=== PATIENT | female | born 1945 | race Caucasian/White ===

== ENCOUNTER 2021-08-02 09:43 | Outpatient (CLI) | payer MEDICARE, SELFPAY ==
--- NOTE | 2021-08-02 09:57 | EST_ITS ---
Patient Info Name: Michelle Santana Age: 76 years : 1945 Gender: Female Ht: 61 in Wt: 160 lbs BSA: 1.79 m2 HR: 57 bpm BP: 143 / 86 mmHg Heart Rhythm: Sinus Rhythm Exam Date: 08/02/2021 10:10 AM Exam Location: [facility] Stress Patient Status: Outpatient Admit Date: 08/02/2021 Staff Ordering Physician: Arleen Peraza NP Attending Provider: Arleen Peraza NP Exercise Technologist: Heide Donald CT Exercise Physician: True Mireles DO Exam Type: CA stress test treadmill Study Info Indications I49.9 - IRREGULAR HEART BEAT Z72.3 - EXERCISE INTOLERANCE A regadenoson stress test was performed. Summary 1. 1. Negative Yash exercise stress test for ischemic ST changes by ECG criteria. 2. 2. Reduced functional capacity, achieving 6 METs of workload. 3. 3. Baseline hypertension. 4. 4. Appropriate HR response to exercise. 5. 5. Appropriate HR recovery at 1 minute post exercise. 6. 6. No imaging with stress testing. 7. 7. Patient informed of the above results. Protocol: Yash Stress ECG Details Stage: REST Duration (min): 0 min : 59 sec Speed (mph): 0.0 Grade (%): 0 HR (bpm): 58 SBP (mmHg): 143 DBP (mmHg): 86 METS: --- Stage: REST Duration (min): 5 min : 10 sec Speed (mph): 0.0 Grade (%): 0 HR (bpm): 59 SBP (mmHg): 143 DBP (mmHg): 86 METS: --- Stage: STAGE 1 Duration (min): 1 min : 0 sec Speed (mph): 1.7 Grade (%): 10 HR (bpm): 89 SBP (mmHg): 143 DBP (mmHg): 86 METS: --- Stage: STAGE 1 Duration (min): 2 min : 0 sec Speed (mph): 1.7 Grade (%): 10 HR (bpm): 102 SBP (mmHg): 143 DBP (mmHg): 86 METS: --- Stage: STAGE 1 Duration (min): 3 min : 0 sec Speed (mph): 1.7 Grade (%): 10 HR (bpm): 118 SBP (mmHg): 209 DBP (mmHg): 79 METS: --- Stage: STAGE 2 Duration (min): 0 min : 54 sec Speed (mph): 2.5 Grade (%): 12 HR (bpm): 131 SBP (mmHg): 209 DBP (mmHg): 79 METS: --- Stage: RECOVERY Duration (min): 0 min : 5 sec Speed (mph): 1.5 Grade (%): 0 HR (bpm): 132 SBP (mmHg): 209 DBP (mmHg): 79 METS: --- Stage: RECOVERY Duration (min): 1 min : 5 sec Speed (mph): 0.0 Grade (%): 0 HR (bpm): 102 SBP (mmHg): 209 DBP (mmHg): 79 METS: --- Stage: RECOVERY Duration (min): 2 min : 5 sec Speed (mph): 0.0 Grade (%): 0 HR (bpm): 83 SBP (mmHg): 209 DBP (mmHg): 79 METS: --- Stage: RECOVERY Duration (min): 2 min : 59 sec Speed (mph): 0.0 Grade (%): 0 HR (bpm): 80 SBP (mmHg): 198 DBP (mmHg): 70 METS: --- Rest HR: 59 bpm Peak HR: 132 bpm Rest Sys BP: 143 mmHg Peak Sys BP: 209 mmHg Max Pred HR: 145 bpm % Max Pred HR: 91 % Target HR: 123 bpm Max RPP: 27,588 bpm*mmHg Lopez Score: -5 Termination Reason: Reached target heart rate or workload Cardiac Symptoms: Shortness of breath Max ST Seg Deviation: 1.70 mm Total Time: 3 min : 54 sec
== END 2021-08-02 09:44 | disposition home or self-care (01) ==
PROVIDERS: PCP Nurse Practitioner Family; Visit Provider Nurse Practitioner Family
DX: R68.89 Other general symptoms and signs (principal)
CPT/HCPCS: 93017

== ENCOUNTER 2021-10-17 08:00 | Outpatient (NON) | payer MEDICARE, SELFPAY | END 2021-10-17 08:01 | disposition home or self-care (01) | LOC: ANHLAB 10-18 07:26 | PROVIDERS: PCP Family Medicine; Visit Provider Internal Medicine Gastroenterology | DX: R13.10 Dysphagia, unspecified (principal); K20.90 Esophagitis, unspecified without bleeding | CPT/HCPCS: 88305 ==

== ENCOUNTER 2021-10-17 11:00 | Day surgery (SDC) | payer MEDICARE, SELFPAY ==
[2021-08-16 14:14] VITALS: BMI 29.5
[2021-10-01 14:11] VITALS: BMI 29.5
--- NOTE | 2021-10-16 14:05 | WPDANESEPPF ---
Anes - Initial Pre Proc Eval Procedure: Operation Date: 10/17/21 12:30 Proposed Procedures p Esophagogastroduodenoscopy - Jermaine Bryant MD Date/Time: 10/16/21 14:05 Surgeon: Jermaine Bryant MD Pre Op Diagnosis: Dysphagia Patient Data Age: 76 Gender: F Height: 1.55 m Weight: 71 kg Allergies Allergy/AdvReac Type Severity Reaction Status Date / Time No Known Allergies Allergy Verified 10/01/21 14:23 Home Medications Medication Instructions Recorded Confirmed Type garlic extract 2,000 mg PO DAILY 11/30/20 10/17/21 History mecobalamin (vitamin B12) 1 cap PO DAILY 11/30/20 10/17/21 History zinc gluconate-vitamin C [zinc] 1 cap PO DAILY 11/30/20 10/17/21 History krill oil 1,000 mg-om3 130 mg-dha 1 cap PO DAILY 10/01/21 10/17/21 History 40 mg-epa 80 cm-kl8-xhr-astax cap (Krill Oil ([place] 3 and 6)) Patient hx anesthesia problems: none Family hx anesthesia problems: none Results Review: All pre-operative results and documents have been reviewed as part of the pre-operative evaluation. [facility] Past Medical History Medical History (Updated 08/14/21 @ 11:44 by Arleen Peraza NP) Anemia BMI 29.0-29.9,adult BMI 30.0-30.9,adult Decreased exercise tolerance Drusen of optic disc, right eye Dysphagia Encounter to establish care Epigastric pain Fatigue Heartburn History of anemia Hyperlipidemia LUQ pain Puckering of macula, right eye Screening for breast cancer Vitamin D deficiency Wellness examination Surgical History Surgical History History of appendectomy History of hysterectomy History of tubal ligation Hx of cholecystectomy Family History Family History Father Diabetes mellitus Hypertension Heart disease Mother Cerebrovascular accident Social History Social History Smoking status: Former smoker Alcohol intake: former Substance use: never Substance use type: does not use Living arrangements: with family Spiritual care concerns: No Anes - Eval Final PreProcedure Day of Procedure 10/16/21 14:05 Patient weight: overweight Heart: regular rate and rhythm Lungs: clear to auscultation Airway: Mallampati scale class II Neurological: alert and oriented Last oral intake: >/= 8 hours ASA classification: II Emergent: no Anesthetic plan: proceed Anesthesia type and monitoring: general GIVS and standard monitoring Results Review: All pre-operative results and documents have been reviewed as part of the pre-operative evaluation. Informed Consent: The patient's anesthetic plan and its attendant risks and benefits were discussed with the patient/family/POA. Questions were solicited and answers provided to the satisfaction of the patient/family/POA.
--- NOTE | 2021-10-16 16:08 | P.HP_ITS ---
History of Present Illness History of Present Illness Consent: Risks, benefits, and alternatives have been discussed and questions answered. Patient agrees to proceed with procedure. Chief complaint: Dysphagia Narrative: Michelle Santana is a 76 year old female. She reports painful swallowing and? burning in her chest and feels like food and liquids have a hard time going down her esophagus.? She she reports this has been ongoing the last several months and does not happen all the time just intermittently.? It can be worse of sparkling water, wine, beer, at times water.? She also reports a globus sensation near her thyroid.? She has been using aloe vera juice and states it helps.? She denies any nausea, vomiting, abdominal pain, unintentional weight loss, appetite loss, or typical reflux symptoms.? She does have a lot of gas and bloating but takes papaya enzymes for this.?She frequently has a globus sensation, has had this for years. Review of Systems Review of Systems: All systems reviewed & are unremarkable except as noted in HPI and below PMFSH Past Medical History Medical History Anemia BMI 29.0-29.9,adult BMI 30.0-30.9,adult Decreased exercise tolerance Drusen of optic disc, right eye Dysphagia Encounter to establish care Epigastric pain Fatigue Heartburn History of anemia Hyperlipidemia LUQ pain Puckering of macula, right eye Screening for breast cancer Vitamin D deficiency Wellness examination Surgical History Surgical History History of appendectomy History of hysterectomy History of tubal ligation Hx of cholecystectomy Family History Family History Father Diabetes mellitus Hypertension Heart disease Mother Cerebrovascular accident Social History Social History Smoking status: Former smoker Alcohol intake: former Substance use: never Substance use type: does not use Living arrangements: with family Spiritual care concerns: No Meds Home Medications and Allergies Home Medications Medication Instructions Recorded Confirmed Type garlic extract 2,000 mg PO DAILY 11/30/20 10/17/21 History mecobalamin (vitamin B12) 1 cap PO DAILY 10/07/21 08/24/22 History zinc gluconate-vitamin C [zinc] 1 cap PO DAILY 11/30/20 10/17/21 History krill oil 1,000 mg-om3 130 mg-dha 1 cap PO DAILY 10/01/21 10/17/21 History 40 mg-epa 80 kg-az0-wqa-astax cap (Krill Oil ([place] 3 and 6)) Allergies Allergy/AdvReac Type Severity Reaction Status Date / Time No Known Allergies Allergy Verified 10/01/21 14:23 Exam Const: General: alert Orientation/consciousness: patient oriented x3 Resp: Auscultation: clear to auscultation bilaterally Cardio: Rhythm: regular rhythm GI: GI Palp: Yes Soft to palpation and No Tenderness to palpation present (GI) Neuro: General: patient oriented x3 Assessment and Plan Assessment and plan (1) Dysphagia: Code(s): R13.10 - Dysphagia, unspecified Status: Acute Assessment and Plan: EGD with possible biopsy or dilatation or cautery.
[2021-10-17 11:30] VITALS: BMI 29.9
[2021-10-17 11:31] VITALS: BP 159/84; PULSE 63; RESP 16; TEMP 36.4; O2SAT 100
[2021-10-17] MEDS: LACTATED RINGERS 1,000 ML 150 ML IV CONT (11:36)
[2021-10-17 12:38] VITALS: BP 148/76; PULSE 64; RESP 14; O2SAT 100
[2021-10-17 12:58] VITALS: BP 144/87; PULSE 63; RESP 13; O2SAT 99
--- NOTE | 2021-10-17 13:00 | WPDANESPN ---
Anes - Prog Note Post-Op Date/Time: 10/17/21 13:00 Cardiovascular status: normal Respiratory status: normal Airway patency: baseline Mental status: baseline Post-Op hydration status: normal Vital Signs: Last Vital Signs Temp 36.4 C L 10/17/21 11:31 Pulse 64 10/17/21 12:38 Resp 14 10/17/21 12:38 BP 148/76 H 10/17/21 12:38 Pulse Ox 100 10/17/21 12:38 O2 Del Method Room Air 10/17/21 12:38 Pain Score (VAS): 0 I/O: Intake & Output 10/16/21 10/17/21 10/17/21 23:59 07:59 15:59 Intake Total 200 Balance 200 Post-procedural complaints: none Patient Feedback: Patient satisfied with anesthetic care. Other Findings: Patient vital signs back to baseline. Patient denies nausea and vomiting. Patient's pain under control. Patient OK for discharge.
== END 2021-10-17 13:16 | disposition home or self-care (01) ==
PROVIDERS: PCP Family Medicine; Visit Provider Internal Medicine Gastroenterology
PROC: 0DJ08ZZ Inspection of Upper Intestinal Tract, Via Natural or Artificial Opening Endoscopic (ICD-10-PCS; CPT 43235; principal; 2021-10-17 12:30)
DX: K21.00 Gastro-esophageal reflux disease with esophagitis, without bleeding (principal)
CPT/HCPCS: 43239

== ENCOUNTER → 2024-09-15 10:05 | Outpatient (CLI) | payer MEDICARE, SELFPAY ==
--- NOTE | ~2024-09-15 | XR_ITS ---
XR lumbar spine min 4V 09/15/2024 10:38 Indication: Low back pain Procedure: 5 views lumbar spine Comparison: No prior studies for comparison. Findings: There is disc narrowing at all lumbar levels. There is multilevel facet hypertrophy. There is grade 1 degenerative spondylolisthesis at L4-5 and L5-S1. There is mild curvature of the lumbar sp ine. Sacral foramen are symmetric. No acute fracture. There is atherosclerosis. Impression: 1: Moderate-severe lumbar spondylosis with grade 1 degenerative spondylolisthesis at L4-5 and L5-S1. Reviewed, dictated and finalized at location A. Impression: 1: Moderate-severe lumbar spondylosis with grade 1 degenerative spondylolisthes is at L4-5 and L5-S1.
--- NOTE | ~2024-09-15 | XR_ITS ---
XR hip RT 2V w AP pelvis 09/15/2024 10:38 Indication: Right lower quadrant pain Procedure: 3 views right hip including AP pelvis Comparison: No prior studies for comparison. Findings: There is moderate bilateral osteoarthritis of the hips. There is lower lumbar spondylosis. Pelvic rings intact. Sacral foramen are symmetric. There are pelvic phleboliths. No acute fracture. Impression: 1: Moderate osteoarthritis of the hips. Reviewed, dictated and finalized at location A. Impression: 1: Moderate osteoarthritis of the hips.
== END ==
LOC: EXPTROY 10:09
PROVIDERS: PCP Nurse Practitioner Family; Visit Provider Nurse Practitioner Family
DX: M47.816 Spondylosis without myelopathy or radiculopathy, lumbar region (principal); M43.16 Spondylolisthesis, lumbar region; M43.17 Spondylolisthesis, lumbosacral region; M79.604 Pain in right leg; M79.605 Pain in left leg; R10.31 Right lower quadrant pain; W19.XXXA Unspecified fall, initial encounter
CPT/HCPCS: 72110; 73502

== ENCOUNTER 2024-11-18 00:26 | Day surgery (SDC) | payer MEDICARE, SELFPAY ==
[2024-11-04 10:29] VITALS: BMI 29.0
--- OUTSIDE RECORDS SUMMARY | 2024-11-18 00:29 | XMS_ITS | Clinical Summary ---
Author Organization [facility] Address [address] [place] [address] Care Team Providers Care Night Time Babysitter Name Role Phone Arleen Burleson Primary Care Provider [phone] Allergies No known active allergies Medications vitamin D3, cholecalciferol , 5000 UNITS capsule Take 1 capsule by mouth daily. 8 Active Cyanocobalamin (VITAMIN DEFICIENCY SYSTEM-B12) 1000 MCG/ML Kit 1 mL. Inject 1ml monthly 8 Active Lutein 20 MG Cap Take 2 capsules by mouth daily. 8 Active Magnesium 500 MG Tab Take 1 tablet by mouth daily. 8 Active [place] 3 1200 MG Cap Take 1 capsule by mouth daily. 8 Active glucosamine-cho ndroitin 500-400 MG Cap Take 1 capsule by mouth daily. Active probiotic capsule Take 1 capsule by mouth daily with breakfast. Active Nattokinase 100 MG Cap Take 1 capsule by mouth daily. Active ferrous sulfate, 65 mg elemental, 325 (65 FE) MG tablet Take 325 mg by mouth daily with breakfast. Active diclofenac sodium (VOLTAREN) 1 % gel Apply 2 g topically 4 (four) times daily. 50 g 4 Active lidocaine (ASPERCREME LIDOCAINE) 4 % patch Place 1 patch onto the skin daily. Remove & Discard patch within 12 hours or as directed by 30 patch 4 Active Active Problems Problem Noted Date Diagnosed Date Iron deficiency 12/02/2017 Trigger finger of right thumb 12/02/2017 Medication management 04/29/2017 Vitamin D deficiency 04/29/2017 Ischemic optic neuropathy, right 04/07/2017 Arthritis 03/25/2017 Overview (01/13/2018): Description: hips, but improved Hard of hearing 03/25/2017 Vision loss, right eye 03/25/2017 Pernicious anemia 03/25/2017 Papilledema of right eye 03/25/2017 Overview (01/13/2018): Annotation - [id number]: Manolo Posada, OD - [employer]; Description: severe, with vision loss, right eye - 20/400 [facility] Encounters Date Type Department Care Team Description 10/14/2024 11:35 AM CDT - 10/14/2024 11:59 PM CDT Hospital Encounter [facility] Diagnostic Imaging [address] [place] [id number] Arleen Burleson APNP Discharge Disposition: Home or Self Care (Routine Discharge) 10/14/2024 Travel 10/13/2024 10:11 AM CDT - 10/13/2024 11:59 PM CDT Hospital Encounter [facility] Mammography [id number] [place] [id number] Arleen Burleson APNP Discharge Disposition: Home or Self Care (Routine Discharge) 10/13/2024 Travel 10/01/2024 10:14 PM CDT - 10/01/2024 11:25 PM CDT Emergency [facility] Emergency Room [address] [place] [id number] Samuel Mcbride MD Fall Discharge Disposition: Home or Self Care (Routine Discharge) 10/01/2024 Travel 09/16/2024 7:30 AM CDT - 09/16/2024 11:59 PM CDT Hospital Encounter [facility] [address] [place] [id number] Arleen Burleson APNP Discharge Disposition: Home or Self Care (Routine Discharge) 09/16/2024 Orders Only [facility] [address] [place] [id number] Arleen Burleson APNP 09/16/2024 Travel from Last 3 Months Immunizations Immunization Administration Dates Next Due Fluad influenza vaccine, Carl drivalent (aIIV4), Inactivated, adjuvanted, preservative free, 0.5 mL,IM use 02/04/2019 Influenza Adult (Generic) 01/07/2018,12/08/2013, 12/29/2012 Family History Medical History Relation Comments Diabetes Father Hypertension Father NM Father Breast Cancer Maternal Aunt 50'S Relation Status Comments Father Maternal Aunt Alive Social History Tobacco Use Types Packs/Day Years Used Date Smoking Tobacco: Former Smokeless Tobacco: Never Alcohol Use Standard Drinks/Week Comments Yes 0 (1 standard drink = 0.6 oz pur e alcohol) once a week PHQ-2 Answer Date Recorded PHQ-2 Score - If the patient scores above 3, please move on to questions 3-9 0 08/21/2020 Comments No Sex and Gender Information Value Date Recorded Sex Assigned at Female 09/16/2024 9:20 AM CDT Legal Sex Female 8:43 PM CDT Gender Identity Not on file Sexual Orientation Not on file Occupation Industry Job Start Date Job End Date retired Not on file Not on file Not on file Last Filed Vital Signs Vital Sign Reading Time Taken Comments Blood Pressure 171/91 10/01/2024 10:24 PM CDT Pulse 60 10/01/2024 10:24 PM CDT Temperature 36.4 C (97.5 F) 10/01/2024 10:24 PM CDT Respiratory Rate 20 10/01/2024 10:24 PM CDT Oxygen Saturation 98% 10/01/2024 10:24 PM CDT Inhaled Oxygen Concentration - - Weight 67.6 kg (149 lb) 10/01/2024 10:24 PM CDT Height 152.4 cm (5') 10/01/2024 10:24 PM CDT Body Mass Index 29.1 10/01/2024 10:24 PM CDT Plan of Treatment Health Maintenance Due Date Last Done Comments Hepatitis C 1964 DTaP, Tdap and Td Vaccines ( 1 - Tdap) 1965 Pneumococcal Vaccine: 50+ Ye ars (1 of 1 - PCV) 1996 Zoster Vaccines (1 of 2) 1996 Annual Medicare Wellness Visit 04/28/2011 Dexa Scan (General) 04/28/2011 RSV Immunization or 60+ Years (1 - 1-dose 75+ series) 2021 COVID-19 Vaccine (2023-2 5 season) 2024 Colorectal Cancer Screening Colonoscopy (10 Years) Discontinued 01/29/2018 Meningococcal B Vaccine Aged Out No l onger eligible based on patient's age to complete this topic Meningococcal Vaccine Aged Out No lluvia rodney eligible based on patient's age to complete this topic RSV Immunizations Under 20 Months Aged Out No longer eligible based on patient's age to complete this topic Procedures Procedure Name Priority Date/Time Associated Diagnosis Comments XR WRIST LT MIN 3V Routine 10/14/2024 12 :03 PM CDT Left wrist pain XR HAND LT 3V Routine 10/14/2024 12:03 PM CDT Left hand pain MG SCREENING W KYLE MILLY DIGI Routine 10/13/2024 11:15 AM CDT Visit for screening mammogram XR WRIST LT MIN 3V STAT 10/01/2024 10 :46 PM CDT XR HAND LT 3V STAT 10/01/2024 10:46 PM CDT URINALYSIS, AUTO, COMPLETE Routine 09/16/2024 7:57 AM CDT Hyperlipemia Vitamin B12 deficiency (non anemic) Vitamin D deficiency Anemia, unspecified IRON SAT PANEL (IRON,IBC,%SAT) Routine 09/16/2024 7:41 AM CDT Hyperlipemia Vitamin B12 deficiency (non anemic) Vitamin D deficiency Anemia, unspecified FERRITIN Routine 09/16/2024 7:41 AM CDT Hyperlipemia Vitamin B12 deficiency (non anemic) Vitamin D deficiency Anemia, unspecified TSH W/REFLEX Routine 09/16/2024 7:41 AM CDT Hyperlipemia Vitamin B12 deficiency (non anemic) Vitamin D deficiency Anemia, unspecified CBC W/DIFF AUTOMATED Routine 09/16/2024 7:41 AM CDT Hyperlipemia Vitamin B12 deficiency (non anemic) Vitamin D deficiency Anemia, unspecified VITAMIN B-12 Routine 09/16/2024 7:41 AM CDT Hyperlipemia Vitamin B12 deficiency (non anemic) Vitamin D deficiency Anemia, unspecified VITAMIN D, 25 OH Routine 09/16/2024 7:41 AM CDT Hyperlipemia Vitamin B12 deficiency (non anemic) Vitamin D deficiency Anemia, unspecified LIPID PANEL Routine 09/16/2024 7:41 AM CDT Hyperlipemia Vitamin B12 deficiency (non anemic) Vitamin D deficiency Anemia, unspecified COMPREHENSIVE METABOLIC PANEL Routine 09/16/2024 7:41 AM CDT Hyperlipemia Vitamin B12 deficiency (non anemic) Vitamin D deficiency Anemia, unspecified COLONOSCOPY GENERIC (SCAN ORDER) Routine 01/29/2018 from Last 3 Months or Most Recently Relevant to Health Maintenance Results * XR WRIST LT MIN 3V (10/14/2024 12:03 PM CDT) Only the most recent of2 resultswithin the time period is included. Anatomical Region Laterality Modality Wrist Radiographic Bindu ging 10/14/2024 9:08 PM CDT Impressions 10/14/2024 9:16 PM CDT IMPRESSION: Stable interval appearance of the wrist from prior study. No convincing new acute osseous abnormality. Correlate clinically. Continued follow-up or possible MRI could be considered. Referred By: Interpreted By: John Castro MD, 10/14/2024 9:08 PM Narrative 10/14/2024 9:16 PM CDT [facility] [address] [place] [address] Examination: Left wrist 3 or more views Exam date/time: 10/14/2024 11:52 AM Reason For Exam: left wrist pain Comparison: October 01, 2024 Technique: AP, oblique and lateral views of the left wrist were obtained. Findings: Irregularity in the dorsum of the wrist is again seen, unchanged from prior study. 2 bony densities adjacent first carpal metacarpal joint are noted also stable from prior study. Spurring about this joint is also noted from the associated bones. Slight irregularity of the scaphoid and lateral radius are noted, stable prior study. ===== Procedure Note John Castro MD - 10/14/2024 [facility] [address] [place] [address] Examination: Left wrist 3 or more views Exam date/time: 10/14/2024 11:52 AM Reason For Exam: left wrist pain Comparison: October 01, 2024 Technique: AP, oblique and lateral views of the left wrist wereobtained. Findings: Irregularity in the dorsum of the wrist is again seen, unchangedfrom prior study. 2 bony densities adjacent first carpal metacarpal jointare noted also stable from prior study. Spurring about this joint is alsonoted from the associated bones. Slight irregularity of the scaphoid andlateral radius are noted, stable prior study. ===== IMPRESSION: Stable interval appearance of the wrist from prior study. No convincingnew acute osseous abnormality. Correlate clinically. Continued follow-upor possible MRI could be considered. Referred By: Interpreted By: John Castro MD, 10/14/2024 9:08 PM Arleen MIRELES [facility] Final Result * XR HAND LT 3V (10/14/2024 12:03 PM CDT) Only the most recent of2 resultswithin the time period is included. Anatomical Region Laterality Modality Hand Radiographic Bindu ging 10/14/2024 9:13 PM CDT Impressions 10/14/2024 9:17 PM CDT IMPRESSION: 1. No definite acute osseous abnormality. 2. Multiple bony densities adjacent to the first metacarpophalangeal joint and first carpometacarpal joint, stable from prior study. This could represent accessory ossicles, unfused apophysis or a avulsion of uncertain chronicity. Correlate clinically.. 3. Mild osteoarthritis. Referred By: Interpreted By: John Castro MD, 10/14/2024 9:13 PM Narrative 10/14/2024 9:17 PM CDT [facility] [address] [facility]. [place] [id number] EXAMINATION: Left hand, 3 views EXAM DATE/TIME: 10/14/2024 11:52 AM REASON FOR EXAM: left hand pain COMPARISON: October 01, 2024 TECHNIQUE: PA, oblique, and lateral views of the left hand were obtained. FINDINGS: No definite acute fracture or dislocation is seen. Multiple bony densities adjacent to the first metacarpal phalangeal joint and first carpal metacarpal joint is seen. These appear stable from prior study. Spurring about multiple interphalangeal joints is seen. Findings about the wrist are further described on wrist x-ray. ===== Procedure Note John Castro MD - 10/14/2024 [facility] [address] [facility]. [place] [id number] EXAMINATION: Left hand, 3 views EXAM DATE/TIME: 10/14/2024 11:52 AM REASON FOR EXAM: left hand pain COMPARISON: October 01, 2024 TECHNIQUE: PA, oblique, and lateral views of the left hand wereobtained. FINDINGS: No definite acute fracture or dislocation is seen. Multiplebony densities adjacent to the first metacarpal phalangeal joint and firstcarpal metacarpal joint is seen. These appear stable from prior study.Spurring about multiple interphalangeal joints is seen. Findings aboutthe wrist are further described on wrist x-ray. ===== IMPRESSION: 1. No definite acute osseous abnormality. 2. Multiple bony densities adjacent to the first metacarpophalangealjoint and first carpometacarpal joint, stable from prior study. Thiscould represent accessory ossicles, unfused apophysis or a avulsion ofuncertain chronicity. Correlate clinically.. 3. Mild osteoarthritis. Referred By: Interpreted By: John Castro MD, 10/14/2024 9:13 PM us Arleen Burleson APNP GENERAL IMAGING Final Result * MG SCREENING W KYLE MILLY DIGI (10/13/2024 11:15 AM CDT) Anatomical Region Laterality Modality Breast Bilateral Mammography 10/13/2024 11:3 6 AM CDT Impressions 10/13/2024 11:37 AM CDT =====IMPRESSION:===== No mammographic findings suggestive of malignancy ASSESSMENT: ACR BI-RADS 2 - BENIGN FINDING(S) Recommendation: 1: Routine Screening Bilateral COMMENTS: A negative or benign mammogram should not delay further workup and/or biopsy of a clinically suspicious finding or palpable abnormality. Regions of dense breast tissue may obscure an underlying mass. Ordered By: ARLEEN BURLESON Interpreted By: Chandrakant Marquez MD, 10/13/2024 11:36 AM Narrative 10/13/2024 11:37 [place] [address] EXAMINATION: Digital bilateral screening mammogram with 3-D tomosynthesis EXAM DATE/TIME: 10/13/2024 10:18 AM REASON FOR EXAM: Routine screening. Asymptomatic. History of prior benign right breast biopsy. Family history of breast cancer in maternal aunt. COMPARISON: Screening mammograms 02/08/2021, 12/09/2017, 05/13/2016. TECHNIQUE: Digital screening mammography of both breasts was performed in addition to 3-D Tomosynthesis technique. This study was read with the assistance of a computer-aided detection system. TISSUE DENSITY: There are scattered areas of fibroglandular density. FINDINGS: Scattered benign-appearing calcifications noted. Parenchymal pattern is similar to prior studies. No suspicious masses, malignant appearing calcifications, skin thickening or other abnormalities are present. No significant change from the prior exam. Arleen MIRELES [facility] Final Result * (ABNORMAL) URINALYSIS, AUTO, COMPLETE (09/16/2024 7:57 AM CDT) COLOR (U) YELLOW 09/16/2024 8:48 AM CDT [facility] TRANSPARENCY CLEAR 09/16/2024 8:48 AM CDT [facility] SPECIFIC GRAVITY (U) 1.020 1.000 - 1.030 09/16/2024 8:48 AM CDT [facility] U PH 6.0 5.0 - 9.0 09/16/2024 8:48 AM CDT [facility] LEUKOCYTES (U) 1+(A) NEGATIVE 09/16/2024 8:48 AM CDT [facility] NITRITES NEGATIVE NEGATIVE 09/16/2024 8:48 AM CDT [facility] PROTEIN RANDOM (U) NEGATIVE NEGATIVE 09/16/2024 8:48 AM CDT [facility] GLUCOSE (U) NEGATIVE NEGATIVE 09/16/2024 8:48 AM CDT [facility] KETONES MG/DL (U) NEGATIVE NEGATIVE 09/16/2024 8:48 AM CDT [facility] BILIRUBIN (U) NEGATIVE NEGATIVE 09/16/2024 8:48 AM CDT [facility] BLOOD (U) NEGATIVE NEGATIVE 09/16/2024 8:48 AM CDT [facility] WBC/HPF 0-5 0 - 5 /HPF 09/16/2024 8:48 AM CDT [facility] RBC/HPF 0-5 0 - 5 /HPF 09/16/2024 8:48 AM CDT [facility] EPI/HPF FEW /HPF 09/16/2024 8:48 AM CDT [facility] URINE SPECIMEN OBTAINED BY CLEAN CATCH PROCEDURE / Unknown 09/16/2024 7:57 AM CDT us Arleen MIRELES URINE ORDERABLES Final Result Performing Organization Address City/[facility]/ZIP Co de Phone Number [facility] [address] [place] [address], [place] [phone] * TSH W/REFLEX (09/16/2024 7:41 AM CDT) TSH 2.476 0.358 - 3.74 uIU/ML 09/16/2024 9:17 AM CDT [facility] Comment: HIGH DOSES OF BIOTIN MAY INTERFERE WITH THIS TEST RESULT. CORRELATION TO CLINICAL HISTORY AND PRESENTATION RECOMMENDED. FREE T4 NOT INDICATED 09/16/2024 7:41 AM CDT us Arleen MIRELES [facility]AT[facility] Final Result Performing Organization Address [facility]/ZIP Co de Phone Number [facility] [address] [place] [address], [place] [phone] * IRON SAT PANEL (IRON,IBC,%SAT) (09/16/2024 7:41 AM CDT) IRON 79 50 - 170 MCG/DL 09/16/2024 9:09 AM CDT [facility] IRON BINDING CAPACITY 263 250 - 450 MCG/DL 09/16/2024 9:09 AM CDT [facility] IRON SATURATION 30 20 - 55 % 9:09 AM CDT [facility] 09/16/2024 7:41 AM CDT us Arleen MIRELES [facility] Final Result [facility] [address] [place] [address], [place] [phone] * VITAMIN B-12 (09/16/2024 7:41 AM CDT) VITAMIN B12 S/P/B 646 193 - 986 PG/ML 09/16/2024 9:36 AM CDT [facility] 09/16/2024 7:41 AM CDT Ar[facility] Final Result Performing Organization Address [facility]/ZIP Co de Phone Number [facility] [address] [place] [address], [place] [phone] * COMPREHENSIVE METABOLIC PANEL (09/16/2024 7:41 AM CDT) GLUCOSE 88 70 - 99 MG/DL 09/16/2024 9:17 AM CDT [facility] BUN 15 7 - 18 MG/DL 09/16/2024 9:17 AM CDT [facility] CREATININE S/P/B 0.62 0.55 - 1.02 MG/DL 09/16/2024 9:17 AM CDT [facility] SODIUM S/P/B 143 136 - 145 MMOL/L 09/16/2024 9:17 AM CDT [facility] POTASSIUM S/P/B 3.9 3.5 - 5.1 MMOL/L 09/16/2024 9:17 AM CDT [facility] CHLORIDE S/P/B 107 100 - 108 MMOL/L 09/16/2024 9:17 AM CDT [facility] CO2 29.3 21 - 32 MMOL/L 09/16/2024 9:17 AM CDT [facility] CALCIUM S/P/B 9.0 8.5 - 10.1 MG/DL 09/16/2024 9:[address] [facility] BILIRUBIN TOTAL S/P/B 0.5 0.2 - 1.2 MG/DL 09/16/2024 9:[address] [facility] TOTAL PROTEIN S/P/B 7.0 6.4 - 8.2 G/DL 09/16/2024 9:[address] [facility] ALBUMIN S/P/B 3.8 3.4 - 5.0 G/DL 09/16/2024 9:[address] [facility] AST 16 15 - 37 U/L 09/16/2024 9:[address] [facility] ALT 23 14 - 55 U/L 09/16/2024 9:[address] [facility] ALKALINE PHOSPHATASE S/P/B 74 50 - 136 U/L 09/16/2024 9:[address] [facility] ANION GAP 6.7 5 - 15 MMOL/L 09/16/2024 9:[address] [facility] BUN CREATININE RATIO 24.2 6 - 26 09/16/2024 9:[address] [facility] A/G RATIO 1.2 1.0 - 2.0 RATIO 09/16/2024 9:[address] [facility] GFR ESTIMATE >90 >90 ML/MIN/1.7 3 M2 09/16/2024 9:[address] [facility] Comment: NOTE: eGFR is not calculated for patients <18 years of age. This is an estimated GFR calculation using the new CKD EPI creatinine equation without race and so does not require a correction factor for race. This estimated GFR should not be used for calculating drug doses. 09/16/2024 7:41 AM CDT us Arleen Burleson [facility] Final Result [facility] [address] [place] [address], * (ABNORMAL) LIPID PANEL (09/16/2024 7:41 AM CDT) CHOLESTEROL 234(H) <200.0 MG/DL 09/16/2024 9:17 AM CDT [facility] TRIGLYCERIDES 59 <150 MG/DL 09/16/2024 9:17 AM CDT [facility] HDL 75 >40.0 MG/DL 09/16/2024 9:17 AM T [facility] LDL (CALCULATED) 147(H) <100 MG/DL 09/16/2024 9:17 AM T [facility] Comment:CALCULATED USING THE FRIEDEWALD EQUATION NON HDL CHOLESTEROL 159(H) <130 MG/DL 09/16/2024 9:17 AM T [facility] CHOL/HDL RATIO 3.1 0.0 - 4.5 09/16/2024 9:17 AM T [facility] VLDL CALCULATION 12 5 - 55 MG/DL 09/16/2024 9:17 AM T [facility] LIPID INTERPRETATION 09/16/2024 9:17 AM T [facility] Comment: [facility] REPORT RECOMMENDATIONS: ADULT CHILD LOW RISK: CHOLESTEROL <200 <170 TRIGLYCERIDE <150 --- HDL >=60 --- LDL <100 <110 BORDERLINE: CHOLESTEROL 200-239 170-199 TRIGLYCERIDE 150-199 --- HDL 40-59 --- LDL 100-159 110-129 HIGH RISK: CHOLESTEROL >=240 >=200 TRIGLYCERIDE >=200 --- HDL <40 --- LDL >=160 >=130 09/16/2024 7:41 AM CDT us Arleen Stu [facility] Final Result [facility] [address] [place] [address], * (ABNORMAL) CBC W/DIFF AUTOMATED (09/16/2024 7:41 AM CDT) WBC 3.62(L) 4.4 - 11.0 x10'3/uL 09/16/2024 8:38 AM CDT [facility] RBC 4.60 4.50 - 5.10 x10'6/uL 09/16/2024 8:38 AM CDT [facility] HGB 13.8 12.3 - 15.3 G/DL 09/16/2024 8:38 AM CDT [facility] HCT 41.8 35.9 - 44.6 % 09/16/2024 8:38 AM CDT [facility] MCV 90.9 80.0 - 96.0 FL 09/16/2024 8:38 AM CDT [facility] MCH 30.0 25.3 - 30.9 PG 09/16/2024 8:38 AM CDT [facility] MCHC 33.0 31.0 - 34.1 G/DL 09/16/2024 8:38 AM CDT [facility] RDW 12.9 12.4 - 15.1 % 09/16/2024 8:38 AM CDT [facility] PLT 155 151 - 353 x10'3/uL 09/16/2024 8:38 AM CDT [facility] MPV 11.3 9.6 - 12.0 FL 09/16/2024 8:38 AM CDT [facility] RBC MORPHOLOGY NORMAL 09/16/2024 8:38 AM CDT [facility] PLT MORPH. NORMAL 09/16/2024 8:38 AM CDT [facility] WBC MORPHOLOGY NORMAL 09/16/2024 8:38 AM CDT [facility] LYMPHOCYTES % 39.8 15.8 - 45.0 % 09/16/2024 8:38 AM CDT [facility] NEUTROPHILS % 44.4 42.1 - 71.9 % 09/16/2024 8:38 AM CDT [facility] MONOCYTES % 8.3 5.7 - 12.5 % 09/16/2024 8:38 AM CDT [facility] EOSINOPHILS 6.4(H) 0.0 - 5.6 % 09/16/2024 8:38 AM CDT [facility] BASOPHILS 0.8 0.0 - 1.3 % 09/16/2024 8:38 AM CDT [facility] ABS. NEUTROPHILS 1.61 1.40 - 6.00 x10'3/uL 09/16/2024 8:38 AM CDT [facility] IMMATURE GRANS % 0.3 0.0 - 0.5 % 09/16/2024 8:38 AM CDT [facility] ABS. LYMPHOCYTES 1.44 0.80 - 4.70 x10'3/uL 09/16/2024 8:38 AM CDT [facility] 09/16/2024 7:41 AM CDT us Arleen [facility]RELES LAB[facility]AT[facility] Final Result [facility] [address] [place] [address], [place] [phone] * VITAMIN D, 25 [place] (09/16/2024 7:41 AM CDT) Pathologist [facility] VITAMIN D 25 HYDROXY S/P/B 49 30 - 100 NG/ML 09/16/2024 9:32 AM CDT [facility] Comment: INTERPRETATION DEFICIENT <20 INSUFFICIENT 20-29 SUFFICIENT 30-100 09/16/2024 7:41 AM CDT Arleen Burleson [facility] Final Result [facility] [address] [place] [address], [place] [phone] * FERRITIN (09/16/2024 7:41 AM CDT) Pathologist [facility] FERRITIN 275.0 8.0 - 388.0 NG/ML 09/16/2024 9:40 AM CDT [facility] 09/16/2024 7:41 AM CDT Arleen Stu [facility] Final Result Performing Organization Address [facility] de Phone Number [facility] [address] [place] [address], [place] [phone] * COLONOSCOPY (01/29/2018) us Documents Scanned SCANNING Final Result from Last 3 Months or Most Recently Relevant to Health Maintenance Insurance Care Teams Night Time Babysitter Relationship Specialty Start Date End Date Arleen Burleson APNP [address] [facility] [address] [phone] PCP - General Nurse Practitioner Family 09/03/23
[2024-11-18 06:16] VITALS: BP 139/73; PULSE 53; RESP 18; TEMP 36.3; O2SAT 98; BMI 29.2
[2024-11-18] MEDS: LACTATED RINGERS 1,000 ML 150 ML IV CONT (06:38)
--- NOTE | 2024-11-18 06:56 | WPDANESEPPF ---
Anes - Initial Pre Proc Eval Procedure: Operation Date: 11/18/24 07:30 Proposed Procedures p Screening Colonoscopy - Moshe Sebastian MD Date/Time: 11/18/24 06:56 Surgeon: Moshe Sebastian MD Pre Op Diagnosis: screening/hx colon polyps Patient Data Age: 79 Gender: F Height: 1.52 m Weight: 68 kg Last Vital Signs Temp 97.3 F L 11/18/24 06:16 Pulse 53 L 11/18/24 06:16 Resp 18 11/18/24 06:16 BP 139/73 11/18/24 06:16 Pulse Ox 98 11/18/24 06:16 O2 Del Method Room Air 11/18/24 06:16 Allergies Allergy/AdvReac Type Severity Reaction Status Date / Time No Known Allergies Allergy Verified 11/18/24 06:22 Home Medications ?Medication ?Instructions ?Recorded ?Confirmed ?Type mecobalamin (vitamin B12) 1 cap PO DAILY 11/30/20 11/18/24 History multivitamin with minerals-folic 1 tablet PO DAILY 02/11/22 11/18/24 History acid 200 mcg chewable tablet (Adult Multivitamin Gummies) [id number]-[id number] 1 cap PO DAILY 09/03/22 11/18/24 History fluticasone propionate 50 1 spray intranasal DAILY 09/10/23 11/18/24 History mcg/actuation nasal spray,suspension (24 Hour Allergy Relief) olopatadine 0.2 % eye drops (Eye 1 drp EACH EYE DAILY 09/10/23 11/18/24 History Allergy Itch Relief) cholecalciferol (vitamin D3) 125 250 mcg PO DAILY 09/15/24 11/18/24 History mcg (5,000 unit) capsule pyridoxine (vitamin B6) 50 mg 100 mg PO DAILY 09/15/24 11/18/24 History capsule ferrous sulfate 325 mg (65 mg 325 mg PO DAILY 11/04/24 11/18/24 History iron) tablet (Feosol) Patient hx anesthesia problems: none Family hx anesthesia problems: none Results Review: All pre-operative results and documents have been reviewed as part of the pre-operative evaluation. [facility] Past Medical History Medical History Left wrist pain Left hand pain Screening for colon cancer History of colon polyps B12 deficiency Right groin pain Abnormal EKG Murmur Seasonal allergies Pressure in chest Abnormal heart rhythm Elevated BP without diagnosis of hypertension Sinusitis BMI 28.0-28.9,adult Low back pain radiating to both legs Hyperlipidemia Decreased exercise tolerance Dysphagia LUQ pain Heartburn BMI 30.0-30.9,adult Fatigue Drusen of optic disc, right eye Puckering of macula, right eye Screening for breast cancer Vitamin D deficiency BMI 29.0-29.9,adult Epigastric pain Encounter to establish care Anemia Wellness examination History of anemia Surgical History Surgical History Hx of cholecystectomy History of tubal ligation History of appendectomy History of hysterectomy Family History Family History Father Diabetes mellitus Hypertension Heart disease Mother Cerebrovascular accident Social History Social History Smoking status: Former smoker Alcohol intake: former Alcohol use details: Rarely Substance use: never Substance use type: does not use Lack of Transportation: No Lack of Food: Never True Current Housing: I Have Housing Concerned About Future Housing: No Difficulty Paying Gas/Electric Bills: No Difficulty Paying for Meds: No Currently Unemployed: No Education: Decline to Answer Difficulty w/ Childcare or Family Care: No Living arrangements: with family Spiritual care concerns: No Anes - Eval Final PreProcedure Day of Procedure 11/18/24 06:56 Patient weight: overweight Lungs: normal air movement Airway: Mallampati scale class II Neurological: alert and oriented Last oral intake: >/= 8 hours ASA classification: II Emergent: no Anesthetic plan: proceed Anesthesia type and monitoring: general GIVS and standard monitoring Results Review: All pre-operative results and documents have been reviewed as part of the pre-operative evaluation. Hx of normal stress test 2023. Pt very active w 1-2 fos all day, no cp or sob. Informed Consent: The patient's anesthetic plan and its attendant risks and benefits were discussed with the patient/family/POA. Questions were solicited and answers provided to the satisfaction of the patient/family/POA.
--- NOTE | 2024-11-18 07:32 | PM.IMHP ---
H&P: HPI History of Present Illness Date/Time: 11/18/24 07:32 Chief Complaint: History of colon polyps Narrative: The patient has a history of colonic polyps, the last colonoscopy was approximately 5 years ago. In addition she describes a perineal area lesion like a lump that bleeds when wiping. Review of Systems Review of Systems: All systems reviewed & are unremarkable except as noted in HPI and below PMFSH Past Medical History Medical History Left wrist pain Left hand pain Screening for colon cancer History of colon polyps B12 deficiency Right groin pain Abnormal EKG Murmur Seasonal allergies Pressure in chest Abnormal heart rhythm Elevated BP without diagnosis of hypertension Sinusitis BMI 28.0-28.9,adult Low back pain radiating to both legs Hyperlipidemia Decreased exercise tolerance Dysphagia LUQ pain Heartburn BMI 30.0-30.9,adult Fatigue Drusen of optic disc, right eye Puckering of macula, right eye Screening for breast cancer Vitamin D deficiency BMI 29.0-29.9,adult Epigastric pain Encounter to establish care Anemia Wellness examination History of anemia Surgical History Surgical History Hx of cholecystectomy History of tubal ligation History of appendectomy History of hysterectomy Family History Family History Father Diabetes mellitus Hypertension Heart disease Mother Cerebrovascular accident Social History Social History Smoking status: Former smoker Alcohol intake: former Alcohol use details: Rarely Substance use: never Substance use type: does not use Lack of Transportation: No Lack of Food: Never True Current Housing: I Have Housing Concerned About Future Housing: No Difficulty Paying Gas/Electric Bills: No Difficulty Paying for Meds: No Currently Unemployed: No Education: Decline to Answer Difficulty w/ Childcare or Family Care: No Living arrangements: with family Spiritual care concerns: No Meds Home Medications and Allergies Home Medications ?Medication ?Instructions ?Recorded ?Confirmed ?Type mecobalamin (vitamin B12) 1 cap PO DAILY 11/30/20 11/18/24 History multivitamin with minerals-folic 1 tablet PO DAILY 02/11/22 11/18/24 History acid 200 mcg chewable tablet (Adult Multivitamin Gummies) [id number] [id number]-nlwlko-ozcqtao 1 cap PO DAILY 09/03/22 11/18/24 History fluticasone propionate 50 1 spray intranasal DAILY 09/10/23 11/18/24 History mcg/actuation nasal spray,suspension (24 Hour Allergy Relief) olopatadine 0.2 % eye drops (Eye 1 drp EACH EYE DAILY 09/10/23 11/18/24 History Allergy Itch Relief) cholecalciferol (vitamin D3) 125 250 mcg PO DAILY 09/15/24 11/18/24 History mcg (5,000 unit) capsule pyridoxine (vitamin B6) 50 mg 100 mg PO DAILY 09/15/24 11/18/24 History capsule ferrous sulfate 325 mg (65 mg 325 mg PO DAILY 11/04/24 11/18/24 History iron) tablet (Feosol) Allergies Allergy/AdvReac Type Severity Reaction Status Date / Time No Known Allergies Allergy Verified 11/18/24 06:22 Vital Signs Vital Signs - 24 hr 11/18/24 06:16 Temperature 97.3 F L Pulse Rate 53 L Respiratory Rate 18 Blood Pressure 139/73 Pulse Oximetry 98 Oxygen Delivery Room Air Exam Const: General: cooperative and healthy appearing Resp: Effort & Inspection: normal respiratory effort and able to speak in complete sentences Auscultation: clear to auscultation bilaterally Cardio: Rate: regular rate Rhythm: regular rhythm GI: Inspection: normal to inspection GI Palp: No No hepatosplenomegaly present Auscultation: normal bowel sounds Rectal Exam: deferred Skin: General skin exam: normal color Psych: Appearance: grossly normal Mental Status: mental status grossly normal Assessment and Plan Assessment and plan (1) History of colon polyps: Code(s): Z86.0100 - Personal history of colon polyps, unspecified Status: Acute Assessment and Plan: The patient is deemed a good candidate for the procedure. Consent signed. Will proceed.
[2024-11-18 07:51] VITALS: BP 98/58; PULSE 64; RESP 18; O2SAT 99
[2024-11-18 08:01] VITALS: BP 117/76; PULSE 70; RESP 20; O2SAT 98
[2024-11-18 08:11] VITALS: BP 128/78; PULSE 70; RESP 17; O2SAT 98
== END 2024-11-18 08:26 | disposition home or self-care (01) ==
PROVIDERS: PCP Nurse Practitioner Family; Referring Provider Nurse Practitioner Family; Visit Provider Internal Medicine Gastroenterology
PROC: 0DJD8ZZ Inspection of Lower Intestinal Tract, Via Natural or Artificial Opening Endoscopic (ICD-10-PCS; CPT 45378; principal; 2024-11-18 07:30)
DX: Z12.11 Encounter for screening for malignant neoplasm of colon (principal); K64.8 Other hemorrhoids; K57.30 Diverticulosis of large intestine without perforation or abscess without bleeding; E78.5 Hyperlipidemia, unspecified; E55.9 Vitamin D deficiency, unspecified; D64.9 Anemia, unspecified; R03.0 Elevated blood-pressure reading, without diagnosis of hypertension; E53.8 Deficiency of other specified B group vitamins; R01.1 Cardiac murmur, unspecified; R00.9 Unspecified abnormalities of heart beat; R53.83 Other fatigue; Z98.890 Other specified postprocedural states; Z90.49 Acquired absence of other specified parts of digestive tract; Z98.51 Tubal ligation status; Z86.0100 Personal history of colon polyps, unspecified; Z87.891 Personal history of nicotine dependence; Z82.49 Family history of ischemic heart disease and other diseases of the circulatory system
CPT/HCPCS: G0105; J2003; J2704; J7120